=== PATIENT | male | born 1975 | race Two or more races ===

== ENCOUNTER 2023-09-01 10:22 | Emergency (ER) | payer MEDICAID, OTHER ==
[~2023-09-01] VITALS: Ht 170.2 cm; Wt 80.1 kg
[2023-09-01 11:04] LABS: Urine WBC None Seen /hpf (0 - 3)
[2023-09-01 11:13] LABS: Basophils # (auto) 0.2 10 ^3/uL (0-0.2); Basophils % (auto) 1.8 % (0.0-2.0); Eosinophils # (auto) 0 10 ^3/uL (0-0.8); Eosinophils % (auto) 0.4 % (0.0-7.0); Hematocrit 46.6 % (41.0-53.0); Hemoglobin 15.6 g/dL (13.5-17.5); Lymphocytes # (auto) 2.5 10 ^3/uL (0.4-5.4); Lymphocytes % (auto) 29.2 % (10.0-50.0); Mean Corpuscular Hemoglobin 32.7 pg (28.0-32.0); Mean Corpuscular Hgb Conc. 33.6 g/dL (32.0-36.0); Mean Corpuscular Volume 97.6 fL (80.0-100.0); Monocytes # (auto) 0.6 10 ^3/uL (0-1.3); Monocytes % (auto) 7.4 % (0.0-12.0); Neutrophils # (auto) 5.3 10 ^3/uL (1.6-8.6); Neutrophils % (auto) 61.2 % (37.0-80.0); Nucleated Red Blood Cells % 0.1 %; Red Blood Cells 4.78 10^6/uL (4.5-5.90); Red Cell Distribution Width 15.1 % (11.8-14.3); White Blood Cell 8.7 10^3/uL (4.4-10.8)
[2023-09-01 11:14] LABS: Urine Bacteria NONE SEEN /hpf (None Seen); Urine Blood Negative /uL (Negative); Urine Clarity Clear (Clear); Urine Color Yellow (Yellow); Urine Hyaline Cast MOD /lpf (0 - 2); Urine Mucus MODERATE (None Seen); Urine Protein, UAD 1+ (Negative); Urine Specific Gravity 1.023 (1.001-1.035); Urine Urobilinogen Normal (Negative); Urine pH 5.5 (5.0-8.0)
[2023-09-01] MEDS ORDERED: LORazepam 0.5 MG TAB PO ONE (11:15)
[2023-09-01 11:25] LABS: Amphetamine Screen, Urine Neg (NEGATIVE); Barbiturate Scree,Urine Neg (NEGATIVE); Benzodiazephine Screen, Urine Neg (NEGATIVE); Cannabinoid Screen, Urine Pos (NEGATIVE); Cocaine Screen, Urine Neg (NEGATIVE); Opiate Scree,Urine Neg (NEGATIVE); Phencyclidine Screen, Urine Neg (NEGATIVE)
[2023-09-01 11:28] LABS: Acetaminophen < 2.0 UG/ML (10.0-20.0); Alanine Aminotransferase 27 U/L (7-40); Albumin 4.9 g/dL (3.2-4.8); Alkaline Phosphatase 94 U/L (46-116); Anion Gap 12 (5-15); Aspartate Aminotransferase 21 U/L (13-40); BUN/Creatinine Ratio 9.3 (10.0-20.0); Blood Urea Nitrogen 9 mg/dL (9-23); Calcium 9.7 mg/dL (8.7-10.4); Carbon Dioxide 19 mmol/L (20-30); Chloride 107 mmol/L (98-107); Glucose 145 mg/dL (74-106); Lipase 48 U/L (12-53); Potassium 4.4 mmol/L (3.5-5.1); Sodium 138 mmol/L (136-145)
[2023-09-01 11:29] LABS: Bilirubin, Total 0.7 mg/dL (0.2-1.0); Salicylate < 3.0 mg/dL (2.8-20.0); Total Protein 8.5 g/dL (5.7-8.2)
[2023-09-01] MEDS ORDERED: hydrOXYzine 25 MG TAB or CAP PO PRN (13:15)
[2023-09-01 15:02] VITALS: PULSE 60; RESP 16; O2SAT 99
[2023-09-01] MEDS ORDERED: ACETAMINOPHEN 500 MG TAB PO ONE (16:45)
[2023-09-01 20:15] VITALS: PULSE 79; RESP 16; O2SAT 99
[2023-09-01] MEDS: MIRTAZAPINE 30 MG TAB PO SCH (22:39)
[2023-09-01] MEDS: QUEtiapine FUMARATE 25 MG TAB PO SCH (22:40)
[2023-09-02 08:10] VITALS: RESP 18
[2023-09-02] MEDS ORDERED: LORazepam 0.5 MG TAB PO ONE (10:30)
[2023-09-02 20:00] VITALS: PULSE 54; RESP 16; O2SAT 95
[2023-09-02] MEDS: QUEtiapine FUMARATE 25 MG TAB PO SCH (22:14)
[2023-09-02] MEDS: MIRTAZAPINE 30 MG TAB PO SCH (22:14)
[2023-09-03 14:54] VITALS: BP 131/82; PULSE 71; RESP 15; TEMP 97.6; O2SAT 98
== END 2023-09-03 15:16 ==
LOC: ER 10:22
DX: F41.9 Anxiety disorder, unspecified (principal); R45.851 Suicidal ideations; F32.9 Major depressive disorder, single episode, unspecified; F15.10 Other stimulant abuse, uncomplicated; F12.10 Cannabis abuse, uncomplicated; Z79.899 Other long term (current) drug therapy; Z59.00 Homelessness unspecified
CPT/HCPCS: 36415; 80053; 80307; 80329; 81001; 83690; 85025